=== PATIENT | male | born 2000 | race African-American/Black ===

== ENCOUNTER 2020-04-30 16:52 | Emergency (ER) | payer MEDICAID ==
[~2020-04-30] VITALS: Ht 175.3 cm; Wt 97.1 kg
[2020-04-30 17:04] VITALS: Ht 175.3 cm; Wt 97.1 kg
[2020-04-30 17:47] LABS: microscopic required? NO
[2020-04-30 17:48] VITALS: BP 124/76
[2020-04-30 17:52] LABS: urine erythrocyte NEGATIVE (NEGATIVE)
== END 2020-04-30 17:48 | disposition home or self-care (01) ==
LOC: ED 16:52
PROVIDERS: Emergency Medicine
DX: N34.2 Other urethritis (principal); J45.909 Unspecified asthma, uncomplicated
CPT/HCPCS: 87491; 87591; J0696